=== PATIENT | female | born 1950 | race Caucasian/White ===

== ENCOUNTER 2019-02-25 08:21 | Day surgery (SDC) | payer OTHER ==
[2019-02-20 15:51] VITALS: BMI 26.9
[2019-02-25] MEDS ORDERED: PROPOFOL 20 ML ONE (09:21)
[2019-02-25] MEDS ORDERED: LIDOCAINE HCL/PF 2% SDV 5ML VIAL ONE (09:21)
[2019-02-25 09:51] VITALS: TEMP 97.6
[2019-02-25 10:27] VITALS: BP 135/71; PULSE 61
== END 2019-02-25 10:20 | disposition home or self-care (01) ==
LOC: FASU-ENDO 08:21
PROVIDERS: ATTEND Internal Medicine Gastroenterology
PROC: 0DJD8ZZ Inspection of Lower Intestinal Tract, Via Natural or Artificial Opening Endoscopic (ICD-10-PCS; principal; 2019-02-25 09:22)
DX: Z12.11 Encounter for screening for malignant neoplasm of colon (principal); Z83.71 Family history of colonic polyps; K57.30 Diverticulosis of large intestine without perforation or abscess without bleeding

== ENCOUNTER 2023-11-27 08:20 | Day surgery (SDC) | payer BC ==
[2023-11-21 10:16] VITALS: BMI 28.7
[2023-11-27 08:56] VITALS: RESP 18
[2023-11-27 12:59] VITALS: BP 131/71; PULSE 69; TEMP 97.4
== END 2023-11-27 11:23 | disposition home or self-care (01) ==
LOC: FASU-ENDO 08:20
PROVIDERS: ATTEND Internal Medicine Gastroenterology
PROC: 0DBL8ZX Excision of Transverse Colon, Via Natural or Artificial Opening Endoscopic, Diagnostic (ICD-10-PCS; principal; 2023-11-27 10:24)
DX: Z12.11 Encounter for screening for malignant neoplasm of colon (principal); K63.5 Polyp of colon; K57.30 Diverticulosis of large intestine without perforation or abscess without bleeding; Z83.719 Family history of colon polyps, unspecified
CPT/HCPCS: 88305-TC